=== PATIENT | female | born 1960 | race Caucasian/White ===

== ENCOUNTER 2019-06-03 11:47 | Emergency (ER) | payer OTHER ==
[2019-06-03 11:52] VITALS: RESP 20; TEMP 97.2
[2019-06-03 11:58] LABS: Glucose,Whole Blood 55 mg/dL (75-99)
[2019-06-03 12:21] LABS: Glucose,Whole Blood 78 mg/dL (75-99)
--- NOTE | 2019-06-03 12:36 | ED ---
Recheck HPI - General Chief Complaint: Recheck/Abnormal Lab/Rx Stated Complaint: low blood sugar Time Seen by Provider: 06/03/19 11:59 Source: patient, RN notes reviewed Mode of arrival: ambulatory Limitations: no limitations - History of Present Illness Initial Comments: 59-year-old female presents emergency Department from medical floor after hyperglycemic event. Patient is a known diabetic states that she takes 70 units of 70/30 mix every morning every night she states she did this morning did not eat or drink anything. Patient became very confused and very weak upstairs blood sugar was 34. Patient is able to drink, eat something and all symptoms have resolved. - Related Data Allergies Allergy/AdvReac Type Severity Reaction Status Date / Time No Known Allergies Allergy Verified 06/03/19 11:52 Review of Systems ROS Statement: Those systems with pertinent positive or pertinent negative responses have been documented in the HPI. ROS Other: All systems not noted in ROS Statement are negative. Past Medical History Past Medical History: Diabetes Mellitus, Hypertension History of Any Multi-Drug Resistant Organisms: None Reported Past Surgical History: No Surgical Hx Reported Past Psychological History: No Psychological Hx Reported Smoking Status: Current every day smoker Past Alcohol Use History: None Reported Past Drug Use History: None Reported General Exam Limitations: no limitations General appearance: alert, in no apparent distress Head exam: Present: atraumatic, normocephalic, normal inspection ENT exam: Present: normal exam, mucous membranes moist Neck exam: Present: normal inspection, full ROM. Absent: tenderness, meningismus, lymphadenopathy Respiratory exam: Present: normal lung sounds bilaterally. Absent: respiratory distress, wheezes, rales, rhonchi, stridor Cardiovascular Exam: Present: regular rate, normal rhythm, normal heart sounds. Absent: systolic murmur, diastolic murmur, rubs, gallop, clicks Neurological exam: Present: alert, oriented X3, CN II-XII intact Course Vital Signs 06/03/19 11:49 Temperature 97.2 F L Pulse Rate 101 H Respiratory 20 Rate Blood Pressure 133/70 O2 Sat by Pulse 94 L Oximetry Medical Decision Making - Medical Decision Making Patient states hyperglycemic event. Patient tolerating oral intake. Patient has eaten several crackers in pain and buttocks, was able to drink pop. Patient will be discharged advised to monitor her blood sugar very closely today and return for any change in symptoms. - Lab Data Lab Results 06/03/19 06/03/19 Range/Units 11:57 12:20 POC Glucose (mg/dL) 55 L 78 (75-99) mg/dL POC Glu Ball Warper Tender ID Maria Guadalupe LlanesChong Singleton Disposition Clinical Impression: Hypoglycemia Disposition: HOME SELF-CARE Condition: Stable Instructions (If sedation given, give patient instructions): Hypoglycemia in a Person with Diabetes (ED) Additional Instructions: Please return to the Emergency Department if symptoms worsen or any other concerns. Is patient prescribed a controlled substance at d/c from ED?: No Referrals: None,Stated [Primary Care Provider] - 1-2 days Time of Disposition: 12:36
[2019-06-03 12:54] VITALS: BP 142/77; PULSE 80
== END 2019-06-03 12:54 | disposition home or self-care (01) ==
LOC: EC 11:47
DX: E11.649 Type 2 diabetes mellitus with hypoglycemia without coma (principal); E11.65 Type 2 diabetes mellitus with hyperglycemia; F17.200 Nicotine dependence, unspecified, uncomplicated
CPT/HCPCS: 36415; 99284